=== PATIENT | male | born 1975 | race Caucasian/White ===

== ENCOUNTER 2019-11-18 21:29 | Inpatient (IN) | payer OTHER, SELFPAY ==
[~2019-11-18 21:29] MED LIST: Iopamidol 370 76% 100 ML VIAL ONE; Ketorolac Tromethamine 30 MG/ML VIAL ONE; Metoclopramide HCl 10 MG/2 ML VIAL ONE; Ondansetron PF 4 MG/2 ML Vial ONE; PROPOFOL 200 MG/20 ML VIAL ONE; Rocuronium Bromide 10 MG/ML (10ML VIAL) ONE; Succinylcholine Chloride 20 MG/ML 10 ml SYRINGE FS ONE
[2019-11-18] MEDS ORDERED: Fentanyl 100 MCG/2 ML VIAL ONE (21:34)
[2019-11-18] MEDS ORDERED: Ondansetron PF 4 MG/2 ML Vial ONE (21:34)
[2019-11-18] MEDS ORDERED: Adacel (T-DAP) 0.5 ML SYRINGE ONE (21:34)
[2019-11-18 21:43] LABS: #Eosinphils 0.3 thou/uL (0.0-0.7); #Lymphocytes 1.8 thou/uL (1.20-3.40); #Monocytes 0.7 thou/uL (0.11-0.59); #Neutrophils 4.8 thou/uL (1.40-6.50); %Basophils 0.4 % (0.0-1.0); %Eosinophils 3.9 % (0.0-10.0); %Lymphocytes 23.9 % (21.0-51.0); %Monocytes 8.7 % (0.0-10.0); Hemoglobin 14.7 g/dL (14.0-18.0); Mean Corpuscular HGB CONC 33.6 g/dL (32.0-36.0); Mean Corpuscular Hemoglobin 32.4 pg (27.0-31.0); Mean Corpuscular Volume 96.6 fL (78.0-98.0); Mean Platelet Volume 6.9 fL (7.4-10.4); Platelet Count 308 thou/uL (130-400); RBC Distribution Width 12.1 % (11.5-14.5); Red Blood Cell (RBC) Count 4.53 mill/uL (4.70-6.10); White Blood Cell (WBC) Count 7.6 thou/uL (4.8-10.8)
[2019-11-18 21:49] LABS: INR-International Normal Ratio 0.9; PTT 24.3 SEC (22.9-36.1); Prothrombin Time 12.6 SEC (12.0-14.7)
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
[2019-11-18 21:56] LABS: ALT (SGPT) 19 U/L (8-55); AST (SGOT) 20 U/L (5-34); Albumin 4.5 g/dL (3.5-5.0); Alkaline Phosphatase 62 U/L (40-110); Anion Gap 15 mmol/L (10-20); BUN (Urea Nitrogen) 19 mg/dL (8.9-20.6); Bilirubin, Total 0.4 mg/dL (0.2-1.2); Calc. Creatinine Clearance 0 mL/min (70-130); Calcium 10.1 mg/dL (7.8-10.44); Carbon Dioxide 29 mmol/L (22-29); Chloride 105 mmol/L (98-107); Estimated GFR-MDRD 71; Globulin 2.6 g/dL (2.4-3.5); Glucose 125 mg/dL (70-105); Potassium 4.6 mmol/L (3.5-5.1); Protein, Total 7.1 g/dL (6.0-8.3); Sodium 144 mmol/L (136-145)
[2019-11-18] MEDS ORDERED: Midazolam HCl 2 mg/2 ml Vial ONE (22:09)
[2019-11-18] MEDS ORDERED: Fentanyl 250 MCG/5 ML VIAL ONE (22:09)
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
[2019-11-18 22:22] LABS: Acetaminophen Less than 6.0 mcg/mL (10.0-30.0); Alcohol Less than 10 mg/dL (Less than 10); CK (CPK) 264 U/L (30-200); Magnesium 2.1 mg/dL (1.6-2.6); Phosphorus 3.9 mg/dL (2.3-4.7); Salicylate Less than 8.0 mg/dL (15.0-30.0)
[2019-11-18] MEDS ORDERED: Protamine Sulfate 250 MG/25 ML VIAL ONE (22:27)
[2019-11-18] MEDS ORDERED: Heparin 5,000 UNITS/ML VIAL ONE (22:27)
[2019-11-18] MEDS ORDERED: Sodium Chloride 0.9% 30 ML ONE (22:30)
[2019-11-18] MEDS ORDERED: SUGAMMADEX SODIUM 500 MG/5 ML VIAL ONE (22:48)
[2019-11-18] MEDS ORDERED: Famotidine/PF 20 mg/2ml Vial ONE (22:48)
[2019-11-18] MEDS ORDERED: Scopolamine 1.5 mg/72 hour Patch ONE (22:49)
[2019-11-18] MEDS ORDERED: HYDROmorphone 2 MG/ML VIAL ONE (22:50)
[2019-11-18] MEDS ORDERED: Morphine 4 MG/ML VIAL SLOW IVP PRN (22:56)
[2019-11-18] MEDS ORDERED: Ondansetron PF 4 MG/2 ML Vial IVP PRN (22:56)
[2019-11-18] MEDS ORDERED: hydrALAZINE 20 MG/ML VIAL SLOW IVP PRN (22:56)
[2019-11-18] MEDS ORDERED: Dextrose 5% in Water 1,000 ML IV PRN (22:56)
[2019-11-18] MEDS ORDERED: Dextrose 50% Abboject 50 ML SYRINGE SLOW IVP PRN (22:56)
[2019-11-18] MEDS ORDERED: traMADol HCl 50 MG TAB PO PRN ×2 (22:59)
[2019-11-18] MEDS ORDERED: Cyclobenzaprine 10 MG TAB PO PRN (22:59)
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
[2019-11-19] MEDS ORDERED: Ondansetron HCl/PF 4 MG/2 ML Vial IVP PRN (00:23)
[2019-11-19] MEDS ORDERED: Promethazine HCl 25 MG/ML VIAL SLOW IVP PRN (00:23)
[2019-11-19] MEDS ORDERED: Promethazine HCl 25 MG/ML VIAL IM PRN (00:23)
[2019-11-19] MEDS ORDERED: Meperidine HCl/PF 25 MG/ML VIAL SLOW IVP PRN (00:23)
[2019-11-19] MEDS: Sodium Chloride 0.9% 1,000 ML IV SCH ×2 (01:30→10:08)
[2019-11-19 01:32] VITALS: BMI 27.3
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
[2019-11-19 01:49] LABS: Lactic Acid 1.1 mmol/L (0.5-2.2)
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
[2019-11-19 04:17] LABS: Lactic Acid 0.8 mmol/L (0.5-2.2)
[2019-11-19 04:26] LABS: #Eosinphils 0.2 thou/uL (0.0-0.7); #Lymphocytes 1.6 thou/uL (1.20-3.40); #Monocytes 0.9 thou/uL (0.11-0.59); #Neutrophils 9.1 thou/uL (1.40-6.50); %Basophils 0.4 % (0.0-1.0); %Eosinophils 1.8 % (0.0-10.0); %Lymphocytes 13.4 % (21.0-51.0); %Monocytes 7.5 % (0.0-10.0); %Neutrophils 76.9 % (42.0-75.0); Hemoglobin 12.3 g/dL (14.0-18.0); Mean Corpuscular HGB CONC 33.2 g/dL (32.0-36.0); Mean Corpuscular Hemoglobin 31.8 pg (27.0-31.0); Mean Corpuscular Volume 95.8 fL (78.0-98.0); Mean Platelet Volume 7.2 fL (7.4-10.4); Platelet Count 240 thou/uL (130-400); RBC Distribution Width 12.1 % (11.5-14.5); Red Blood Cell (RBC) Count 3.86 mill/uL (4.70-6.10); White Blood Cell (WBC) Count 11.9 thou/uL (4.8-10.8)
[2019-11-19 04:31] LABS: Prothrombin Time 13.4 SEC (12.0-14.7)
[2019-11-19 04:40] LABS: Anion Gap 11 mmol/L (10-20); BUN (Urea Nitrogen) 17 mg/dL (8.9-20.6); Calc. Creatinine Clearance 128 mL/min (70-130); Calcium 8.4 mg/dL (7.8-10.44); Carbon Dioxide 24 mmol/L (22-29); Chloride 109 mmol/L (98-107); Estimated GFR-MDRD Greater than 90; Glucose 114 mg/dL (70-105); Phosphorus 3.9 mg/dL (2.3-4.7); Potassium 3.8 mmol/L (3.5-5.1); Sodium 140 mmol/L (136-145)
[2019-11-19] MEDS: CEFAZOLIN 2 GM in Premix Bag 1 BAG IVPB SCH ×2 (05:52→15:47)
[2019-11-19] MEDS: Acetaminophen 500 MG TAB PO SCH ×4 (05:52→19:35)
[2019-11-19 06:26] LABS: Amphetamine Detected (NotDetected); Barbiturates Screen Not Detected (NotDetected); Benzodiazepine Screen Not Detected (NotDetected); Cocaine Metabolite Screen Not Detected (NotDetected); Medtox Control Line Valid? VALID (VALID); Medtox Reader # READER 4; Methadone Not Detected (NotDetected); Methamphetamine Detected (NotDetected); Opiate Screen Not Detected (NotDetected); Oxycodone Screen Not Detected (NotDetected); Phencyclidine (PCP) Not Detected (NotDetected); THC/Cannabinoid Screen Detected (NotDetected); Tricyclic Screen Not Detected (NotDetected)
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
[2019-11-19] MEDS ORDERED: Senokot S 8.6-50 MG TAB PO SCH (09:00)
[2019-11-19] MEDS ORDERED: Polyethylene Glycol 3350 17 GM Packet PO SCH (09:00)
[2019-11-19] MEDS ORDERED: Aspirin 325 mg Enteric Coated Tablet PO SCH (09:00)
[2019-11-19] MEDS ORDERED: Famotidine/PF 20 mg/2ml Vial SLOW IVP SCH (09:00)
[2019-11-19] MEDS: traMADol HCl 50 MG TAB PO SCH ×2 (10:04→15:46)
[2019-11-19] MEDS: Gabapentin 300 MG CAP PO SCH ×2 (10:04→15:45)
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
[2019-11-19 19:59] VITALS: BP 114/77; TEMP 97.8
== END 2019-11-19 21:25 | disposition home or self-care (01) | DRG 909 ==
LOC: ERS 21:29 → EEVIPCON 21:29 → SDC/OP 22:14 → CCU 11-19 00:58 → SURG B 11-19 11:33
PROVIDERS: ADMIT Specialist; ATTEND Specialist
PROC: 06QM0ZZ Repair Right Femoral Vein, Open Approach (ICD-10-PCS; principal; 2019-11-18)
PROC: 041M0JL Bypass Right Popliteal Artery to Popliteal Artery with Synthetic Substitute, Open Approach (ICD-10-PCS; 2019-11-18)
DX: S00-T88 Injury, poisoning and certain other consequences of external causes (principal); F12.10 Cannabis abuse, uncomplicated; F17.210 Nicotine dependence, cigarettes, uncomplicated; W34.00XA Accidental discharge from unspecified firearms or gun, initial encounter
CPT/HCPCS: 36415; 71045; 72170; 80048; 80053; 80306; 80307; 82550; 83605; 83735; 84100; 85025; 85610; 85730; 86850; 86900; 86901; 90471; 90715; 96365; 96375; J0690; J1170; J1644; J1885; J2250; J2405; J2704; J2720; J2765; J3010; Q9967; S0028

== ENCOUNTER 2019-11-24 07:44 | Emergency (ER) | payer SELFPAY ==
[2019-11-24 08:34] LABS: #Eosinphils 0.3 thou/uL (0.0-0.7); #Monocytes 0.7 thou/uL (0.11-0.59); #Neutrophils 6.8 thou/uL (1.40-6.50); %Basophils 0.6 % (0.0-1.0); %Eosinophils 2.9 % (0.0-10.0); %Lymphocytes 11.3 % (21.0-51.0); %Monocytes 8.4 % (0.0-10.0); %Neutrophils 76.9 % (42.0-75.0); Hemoglobin 12.1 g/dL (14.0-18.0); Mean Corpuscular HGB CONC 34.1 g/dL (32.0-36.0); Mean Platelet Volume 6.9 fL (7.4-10.4); Platelet Count 306 thou/uL (130-400); RBC Distribution Width 11.9 % (11.5-14.5); Red Blood Cell (RBC) Count 3.67 mill/uL (4.70-6.10); White Blood Cell (WBC) Count 8.9 thou/uL (4.8-10.8)
[2019-11-24 08:47] LABS: ALT (SGPT) 17 U/L (8-55); AST (SGOT) 23 U/L (5-34); Albumin 4.2 g/dL (3.5-5.0); Alkaline Phosphatase 68 U/L (40-110); Anion Gap 12 mmol/L (10-20); BUN (Urea Nitrogen) 17 mg/dL (8.9-20.6); Bilirubin, Total 0.4 mg/dL (0.2-1.2); CK (CPK) 237 U/L (30-200); Calc. Creatinine Clearance 0 mL/min (70-130); Calcium 9.7 mg/dL (7.8-10.44); Carbon Dioxide 29 mmol/L (22-29); Chloride 100 mmol/L (98-107); Estimated GFR-MDRD Greater than 90; Globulin 2.4 g/dL (2.4-3.5); Glucose 118 mg/dL (70-105); Potassium 4.3 mmol/L (3.5-5.1); Protein, Total 6.6 g/dL (6.0-8.3); Sodium 137 mmol/L (136-145)
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
== END 2019-11-24 09:30 | disposition home or self-care (01) ==
LOC: ERS 07:44
DX: I82.431 Acute embolism and thrombosis of right popliteal vein (principal); I82.411 Acute embolism and thrombosis of right femoral vein; I82.441 Acute embolism and thrombosis of right tibial vein; F17.210 Nicotine dependence, cigarettes, uncomplicated
CPT/HCPCS: 80053; 82550; 85025

== ENCOUNTER 2021-11-08 17:18 | Inpatient (IN) | payer SELFPAY ==
[2021-11-08] MEDS ORDERED: Morphine 4 MG/ML VIAL ONE (17:44)
[2021-11-08] MEDS ORDERED: Ketorolac Tromethamine 30 MG/ML VIAL ONE (18:30)
[2021-11-08] MEDS ORDERED: Fentanyl 100 MCG/2 ML VIAL ONE (18:34)
[2021-11-08] MEDS ORDERED: hydrALAZINE 20 MG/ML VIAL SLOW IVP PRN (19:24)
[2021-11-08] MEDS ORDERED: Ondansetron PF 4 MG/2 ML Vial IVP PRN (19:24)
[2021-11-08] MEDS ORDERED: Promethazine HCl 25 MG/ML VIAL IM PRN (19:24)
[2021-11-08] MEDS ORDERED: traMADol HCl 50 MG TAB PO PRN (19:30)
[2021-11-08] MEDS ORDERED: Cyclobenzaprine 10 MG TAB PO PRN (19:30)
[2021-11-08 19:37] LABS: #Eosinphils 0.3 thou/uL (0.0-0.7); #Lymphocytes 1.3 thou/uL (1.20-3.40); #Monocytes 0.6 thou/uL (0.11-0.59); #Neutrophils 4.6 thou/uL (1.40-6.50); %Basophils 0.3 % (0.0-1.0); %Eosinophils 4.2 % (0.0-10.0); %Lymphocytes 19.4 % (21.0-51.0); %Monocytes 8.1 % (0.0-10.0); Hemoglobin 14.3 g/dL (14.0-18.0); Mean Corpuscular HGB CONC 32.9 g/dL (32.0-36.0); Mean Corpuscular Volume 97.4 fL (78.0-98.0); Mean Platelet Volume 6.7 fL (7.4-10.4); Platelet Count 278 thou/uL (130-400); RBC Distribution Width 12.1 % (11.5-14.5); Red Blood Cell (RBC) Count 4.48 mill/uL (4.70-6.10); White Blood Cell (WBC) Count 6.8 thou/uL (4.8-10.8)
[2021-11-08 19:44] LABS: Prothrombin Time 12.8 sec (12.0-14.7)
[2021-11-08 19:45] LABS: PTT 31.8 sec (22.9-36.1)
[2021-11-08 19:53] LABS: ALT (SGPT) 24 U/L (8-55); AST (SGOT) 26 U/L (5-34); Albumin 4.2 g/dL (3.5-5.0); Alkaline Phosphatase 69 U/L (40-110); Anion Gap 13 mmol/L (10-20); BUN (Urea Nitrogen) 19 mg/dL (8.9-20.6); Bilirubin, Total 0.4 mg/dL (0.2-1.2); Calc. Creatinine Clearance 0 mL/min (70-130); Calcium 9.3 mg/dL (7.8-10.44); Carbon Dioxide 29 mmol/L (22-29); Chloride 100 mmol/L (98-107); Globulin 2.7 g/dL (2.4-3.5); Glucose 85 mg/dL (70-105); Potassium 3.9 mmol/L (3.5-5.1); Protein, Total 6.9 g/dL (6.0-8.3); Sodium 138 mmol/L (136-145)
[2021-11-08] MEDS ORDERED: Sodium Chloride 0.9% 1,000 ML IV SCH (20:30)
[2021-11-08] MEDS: Sodium Chloride 0.9% 1,000 ML IV SCH (22:00)
[2021-11-08] MEDS: Famotidine/PF 20 mg/2ml Vial SLOW IVP SCH (22:00)
[2021-11-08] MEDS ORDERED: Ibuprofen 600 MG TAB PO SCH (22:00)
[2021-11-08] MEDS: Senokot S 8.6-50 MG TAB PO SCH (22:00)
[2021-11-08] MEDS: Gabapentin 100 MG CAP PO SCH (22:00)
[2021-11-09] MEDS: traMADol HCl 50 MG TAB PO SCH ×4 (00:15→18:30)
[2021-11-09] MEDS: Acetaminophen 500 MG TAB PO SCH ×4 (00:15→18:34)
[2021-11-09 03:09] VITALS: BMI 28.8
[2021-11-09] MEDS: Sodium Chloride 0.9% 1,000 ML IV SCH (05:00)
[2021-11-09 06:03] LABS: #Eosinphils 0.3 thou/uL (0.0-0.7); #Lymphocytes 1.6 thou/uL (1.20-3.40); #Monocytes 0.5 thou/uL (0.11-0.59); #Neutrophils 2.5 thou/uL (1.40-6.50); %Basophils 0.8 % (0.0-1.0); %Eosinophils 6.2 % (0.0-10.0); %Lymphocytes 32.8 % (21.0-51.0); %Neutrophils 50.3 % (42.0-75.0); Hemoglobin 13.5 g/dL (14.0-18.0); Mean Corpuscular HGB CONC 34.1 g/dL (32.0-36.0); Mean Corpuscular Hemoglobin 33.6 pg (27.0-31.0); Mean Corpuscular Volume 98.3 fL (78.0-98.0); Mean Platelet Volume 6.3 fL (7.4-10.4); Platelet Count 231 thou/uL (130-400); RBC Distribution Width 12.1 % (11.5-14.5); Red Blood Cell (RBC) Count 4.03 mill/uL (4.70-6.10); White Blood Cell (WBC) Count 4.9 thou/uL (4.8-10.8)
[2021-11-09 06:27] LABS: Anion Gap 8 mmol/L (10-20); BUN (Urea Nitrogen) 15 mg/dL (8.9-20.6); Calc. Creatinine Clearance 119 mL/min (70-130); Calcium 8.1 mg/dL (7.8-10.44); Carbon Dioxide 26 mmol/L (22-29); Chloride 106 mmol/L (98-107); Glucose 87 mg/dL (70-105); Potassium 3.7 mmol/L (3.5-5.1); Sodium 136 mmol/L (136-145)
[2021-11-09 06:29] LABS: CK (CPK) 258 U/L (30-200); Phosphorus 2.8 mg/dL (2.3-4.7)
[2021-11-09] MEDS ORDERED: PHOS-NAK 1 PKT PACK PO SCH (07:15)
[2021-11-09] MEDS ORDERED: Polyethylene Glycol 3350 17 GM Packet PO SCH (09:00)
[2021-11-09] MEDS: Ibuprofen 200 MG TAB PO SCH ×2 (09:11→17:03)
[2021-11-09] MEDS: Gabapentin 100 MG CAP PO SCH ×2 (09:14→15:21)
[2021-11-09] MEDS: Senokot S 8.6-50 MG TAB PO SCH (09:14)
[2021-11-09] MEDS: Famotidine/PF 20 mg/2ml Vial SLOW IVP SCH (09:14)
[2021-11-09 12:05] VITALS: TEMP 97.4
[2021-11-09] MEDS ORDERED: Fentanyl 100 MCG/2 ML VIAL ONE ×2 (12:13→13:04)
[2021-11-09 12:57] LABS: SARS-CoV-2 NAA Rapid Test Not Detected (NotDetected)
[2021-11-09] MEDS ORDERED: ceFAZolin (BATCH) 2 GM/100 ML BAG ONE (12:59)
[2021-11-09] MEDS ORDERED: Dexamethasone 20 MG/5 ML VIAL ONE (13:07)
[2021-11-09] MEDS ORDERED: Lidocaine 1% PF 5 ML VIAL ONE (13:07)
[2021-11-09] MEDS ORDERED: PROPOFOL 200 MG/20 ML VIAL ONE (13:07)
[2021-11-09] MEDS ORDERED: Ondansetron PF 4 MG/2 ML Vial ONE (13:07)
[2021-11-09] MEDS ORDERED: Neomycin-Polymyxin 1 ML AMP ONE (13:34)
[2021-11-09] MEDS ORDERED: Bupivacaine 0.25% 10 ML VIAL ONE (14:51)
[2021-11-09 15:44] VITALS: BP 124/77
[2021-11-09] MEDS ORDERED: CEFAZOLIN 2 GM, Admixture Fee 1 EACH in Sodium Chloride 0.9% 100 ML IVPB SCH ×2 (19:00→23:59)
== END 2021-11-09 18:47 | disposition left against medical advice (07) | DRG 906 ==
LOC: ERS 17:18 → SJJU 20:23 → OBSVTOIN 20:23
PROVIDERS: ADMIT Specialist; ATTEND Specialist
PROC: 0KNC0ZZ Release Right Hand Muscle, Open Approach (ICD-10-PCS; principal; 2021-11-08)
PROC: 0KNC0ZZ Release Right Hand Muscle, Open Approach (ICD-10-PCS; 2021-11-08)
PROC: 0KNC0ZZ Release Right Hand Muscle, Open Approach (ICD-10-PCS; 2021-11-08)
PROC: 01N50ZZ Release Median Nerve, Open Approach (ICD-10-PCS; 2021-11-08)
DX: T79.A11A Traumatic compartment syndrome of right upper extremity, initial encounter (principal); N17.9 Acute kidney failure, unspecified; S67.21XA Crushing injury of right hand, initial encounter; F12.10 Cannabis abuse, uncomplicated; F17.210 Nicotine dependence, cigarettes, uncomplicated; W23.0XXA Caught, crushed, jammed, or pinched between moving objects, initial encounter; Z20.822 Contact with and (suspected) exposure to COVID-19; Z98.890 Other specified postprocedural states; Z72.89 Other problems related to lifestyle
CPT/HCPCS: 36415; 80048; 80053; 80307; 82550; 83735; 84100; 85025; 85610; 85730; 87070; 87205; 96374; 96375; J0690; J1100; J1885; J2270; J2405; J2704; J3010; J7050; S0020; S0028; U0002

== ENCOUNTER 2021-11-11 00:12 | Inpatient (IN) | payer SELFPAY ==
[2021-11-11] MEDS ORDERED: Morphine 4 MG/ML VIAL ONE (00:47)
[2021-11-11 01:03] LABS: #Eosinphils 0.2 thou/uL (0.0-0.7); #Lymphocytes 1.8 thou/uL (1.20-3.40); #Monocytes 0.7 thou/uL (0.11-0.59); #Neutrophils 4.9 thou/uL (1.40-6.50); %Basophils 0.4 % (0.0-1.0); %Eosinophils 3.2 % (0.0-10.0); %Lymphocytes 23.7 % (21.0-51.0); %Monocytes 8.5 % (0.0-10.0); %Neutrophils 64.3 % (42.0-75.0); Hemoglobin 13.5 g/dL (14.0-18.0); Mean Corpuscular HGB CONC 33.1 g/dL (32.0-36.0); Mean Corpuscular Hemoglobin 32.6 pg (27.0-31.0); Mean Corpuscular Volume 98.4 fL (78.0-98.0); Mean Platelet Volume 6.3 fL (7.4-10.4); Platelet Count 272 thou/uL (130-400); RBC Distribution Width 12.2 % (11.5-14.5); Red Blood Cell (RBC) Count 4.15 mill/uL (4.70-6.10); White Blood Cell (WBC) Count 7.6 thou/uL (4.8-10.8)
[2021-11-11] MEDS ORDERED: Ketorolac Tromethamine 30 MG/ML VIAL ONE (01:04)
[2021-11-11 01:25] LABS: ALT (SGPT) 24 U/L (8-55); AST (SGOT) 26 U/L (5-34); Albumin 4.1 g/dL (3.5-5.0); Alkaline Phosphatase 65 U/L (40-110); Anion Gap 8 mmol/L (10-20); BUN (Urea Nitrogen) 9 mg/dL (8.9-20.6); Bilirubin, Total 0.5 mg/dL (0.2-1.2); Calc. Creatinine Clearance 0 mL/min (70-130); Calcium 8.9 mg/dL (7.8-10.44); Carbon Dioxide 31 mmol/L (22-29); Chloride 104 mmol/L (98-107); Globulin 2.7 g/dL (2.4-3.5); Glucose 84 mg/dL (70-105); Potassium 3.9 mmol/L (3.5-5.1); Protein, Total 6.8 g/dL (6.0-8.3); Sodium 139 mmol/L (136-145)
[2021-11-11] MEDS ORDERED: Dextrose 50% Abboject 50 ML SYRINGE SLOW IVP PRN (01:29)
[2021-11-11] MEDS ORDERED: Dextrose 5% in Water 1,000 ML IV PRN (01:29)
[2021-11-11] MEDS ORDERED: hydrALAZINE 20 MG/ML VIAL SLOW IVP PRN (01:29)
[2021-11-11] MEDS ORDERED: Morphine 4 MG/ML VIAL SLOW IVP PRN ×2 (01:29→01:53)
[2021-11-11] MEDS ORDERED: Ondansetron PF 4 MG/2 ML Vial IVP PRN (01:29)
[2021-11-11] MEDS ORDERED: Sodium Chloride 0.9% 1,000 ML IV SCH (01:30)
[2021-11-11] MEDS ORDERED: Cyclobenzaprine 10 MG TAB PO PRN (01:32)
[2021-11-11] MEDS ORDERED: ceFAZolin 2 GM/Dextrose 50 ML 2 GM in Premix Bag 1 BAG IVPB SCH (02:00)
[2021-11-11] MEDS ORDERED: Gabapentin 100 MG CAP PO SCH (02:00)
[2021-11-11 02:31] VITALS: BMI 27.6
[2021-11-11] MEDS: Acetaminophen 500 MG TAB PO SCH ×4 (02:48→21:10)
[2021-11-11] MEDS: traMADol HCl 50 MG TAB PO SCH ×4 (02:48→21:10)
[2021-11-11] MEDS: CEFAZOLIN 2 GM in Sodium Chloride 0.9% 100 ML IVPB SCH ×4 (02:50→17:18)
[2021-11-11] MEDS: Gabapentin 100 MG CAP PO SCH ×3 (05:33→21:11)
[2021-11-11] MEDS: Ketorolac Tromethamine 30 MG/ML VIAL IVP SCH ×3 (05:34→17:18)
[2021-11-11] MEDS: Saccharomyces boulardii 250 MG CAP PO SCH (07:54)
[2021-11-11] MEDS: Senokot S 8.6-50 MG TAB PO SCH ×2 (07:54→21:10)
[2021-11-11] MEDS: Polyethylene Glycol 3350 17 GM Packet PO SCH (07:54)
[2021-11-11] MEDS: Famotidine 20 MG TAB PO SCH ×2 (07:54→21:10)
[2021-11-12] MEDS: Ketorolac Tromethamine 30 MG/ML VIAL IVP SCH ×4 (00:36→17:24)
[2021-11-12] MEDS: CEFAZOLIN 2 GM in Sodium Chloride 0.9% 100 ML IVPB SCH ×3 (02:17→10:59)
[2021-11-12] MEDS: Acetaminophen 500 MG TAB PO SCH ×4 (02:18→20:10)
[2021-11-12] MEDS: traMADol HCl 50 MG TAB PO SCH ×4 (02:18→20:10)
[2021-11-12 05:45] LABS: #Eosinphils 0.4 thou/uL (0.0-0.7); #Monocytes 0.5 thou/uL (0.11-0.59); %Basophils 0.7 % (0.0-1.0); %Eosinophils 7.2 % (0.0-10.0); %Monocytes 8.7 % (0.0-10.0); %Neutrophils 50.5 % (42.0-75.0); Hemoglobin 13.5 g/dL (14.0-18.0); Mean Corpuscular HGB CONC 32.5 g/dL (32.0-36.0); Mean Corpuscular Volume 98.6 fL (78.0-98.0); Mean Platelet Volume 6.4 fL (7.4-10.4); Platelet Count 286 thou/uL (130-400); Red Blood Cell (RBC) Count 4.21 mill/uL (4.70-6.10); White Blood Cell (WBC) Count 5.9 thou/uL (4.8-10.8)
[2021-11-12 05:54] LABS: Anion Gap 7 mmol/L (10-20); BUN (Urea Nitrogen) 11 mg/dL (8.9-20.6); CK (CPK) 101 U/L (30-200); Calc. Creatinine Clearance 109 mL/min (70-130); Calcium 8.3 mg/dL (7.8-10.44); Carbon Dioxide 28 mmol/L (22-29); Chloride 106 mmol/L (98-107); Glucose 85 mg/dL (70-105); Magnesium 1.9 mg/dL (1.6-2.6); Phosphorus 3.6 mg/dL (2.3-4.7); Sodium 137 mmol/L (136-145)
[2021-11-12] MEDS: Gabapentin 100 MG CAP PO SCH ×3 (06:19→21:30)
[2021-11-12] MEDS ORDERED: Morphine 4 MG/ML VIAL SLOW IVP PRN (07:33)
[2021-11-12] MEDS ORDERED: PHOS-NAK 1 PKT PACK PO SCH (07:45)
[2021-11-12] MEDS: Polyethylene Glycol 3350 17 GM Packet PO SCH (08:05)
[2021-11-12] MEDS: Famotidine 20 MG TAB PO SCH ×2 (08:05→21:30)
[2021-11-12] MEDS: Senokot S 8.6-50 MG TAB PO SCH ×2 (08:06→21:30)
[2021-11-12] MEDS: Saccharomyces boulardii 250 MG CAP PO SCH (08:06)
[2021-11-12 08:44] LABS: SARS-CoV-2 NAA Rapid Test Not Detected (NotDetected)
[2021-11-12] MEDS ORDERED: Piperacillin/Tazobactam 3.375 GM in Sodium Chloride 0.9% 100 ML IVPB SCH (12:15)
[2021-11-12] MEDS: Piperacillin/Tazobactam 3.375 GM in Sodium Chloride 0.9% 100 ML IVPB SCH ×2 (15:49→16:30)
[2021-11-13] MEDS: Piperacillin/Tazobactam 3.375 GM in Sodium Chloride 0.9% 100 ML IVPB SCH ×3 (00:35→10:58)
[2021-11-13] MEDS: Ketorolac Tromethamine 30 MG/ML VIAL IVP SCH ×2 (01:03→05:55)
[2021-11-13] MEDS: Acetaminophen 500 MG TAB PO SCH ×3 (02:05→16:19)
[2021-11-13] MEDS: traMADol HCl 50 MG TAB PO SCH ×3 (02:05→16:20)
[2021-11-13] MEDS: Gabapentin 100 MG CAP PO SCH ×2 (05:54→16:19)
[2021-11-13 06:07] LABS: #Eosinphils 0.4 thou/uL (0.0-0.7); #Lymphocytes 1.2 thou/uL (1.20-3.40); #Monocytes 0.4 thou/uL (0.11-0.59); #Neutrophils 3.3 thou/uL (1.40-6.50); %Basophils 0.6 % (0.0-1.0); %Eosinophils 7.9 % (0.0-10.0); %Lymphocytes 21.8 % (21.0-51.0); %Monocytes 6.9 % (0.0-10.0); %Neutrophils 62.9 % (42.0-75.0); Hemoglobin 14.8 g/dL (14.0-18.0); Mean Corpuscular HGB CONC 32.9 g/dL (32.0-36.0); Mean Corpuscular Hemoglobin 32.2 pg (27.0-31.0); Mean Corpuscular Volume 97.9 fL (78.0-98.0); Mean Platelet Volume 6.9 fL (7.4-10.4); Platelet Count 279 thou/uL (130-400); Red Blood Cell (RBC) Count 4.59 mill/uL (4.70-6.10); White Blood Cell (WBC) Count 5.3 thou/uL (4.8-10.8)
[2021-11-13 06:26] LABS: Anion Gap 13 mmol/L (10-20); BUN (Urea Nitrogen) 11 mg/dL (8.9-20.6); Calc. Creatinine Clearance 113 mL/min (70-130); Calcium 8.8 mg/dL (7.8-10.44); Carbon Dioxide 24 mmol/L (22-29); Chloride 103 mmol/L (98-107); Glucose 116 mg/dL (70-105); Magnesium 1.9 mg/dL (1.6-2.6); Phosphorus 3.1 mg/dL (2.3-4.7); Potassium 3.8 mmol/L (3.5-5.1); Sodium 136 mmol/L (136-145)
[2021-11-13] MEDS ORDERED: PHOS-NAK 1 PKT PACK PO SCH (09:00)
[2021-11-13] MEDS ORDERED: Ibuprofen 200 MG TAB PO PRN (09:01)
[2021-11-13] MEDS: Famotidine 20 MG TAB PO SCH (09:27)
[2021-11-13] MEDS: Saccharomyces boulardii 250 MG CAP PO SCH (09:27)
[2021-11-13] MEDS: Senokot S 8.6-50 MG TAB PO SCH (09:27)
[2021-11-13] MEDS: Polyethylene Glycol 3350 17 GM Packet PO SCH (09:27)
[2021-11-13 16:30] VITALS: BP 128/85; TEMP 97.8
== END 2021-11-13 19:45 | disposition left against medical advice (07) | DRG 923 ==
LOC: ERS 00:12 → SURG A 01:29 → OBSVTOIN 16:43
PROVIDERS: ADMIT Specialist; ATTEND Specialist
DX: T79.A11A Traumatic compartment syndrome of right upper extremity, initial encounter (principal); R78.81 Bacteremia; S50.11XA Contusion of right forearm, initial encounter; Z20.822 Contact with and (suspected) exposure to COVID-19; F17.210 Nicotine dependence, cigarettes, uncomplicated; S62.306A Unspecified fracture of fifth metacarpal bone, right hand, initial encounter for closed fracture; X58.XXXA Exposure to other specified factors, initial encounter; B96.89 Other specified bacterial agents as the cause of diseases classified elsewhere; Z53.29 Procedure and treatment not carried out because of patient's decision for other reasons
CPT/HCPCS: 36415; 80048; 80053; 82550; 83735; 84100; 85025; 87040; 87149; 96365; 96375; 96376; G0378; J0690; J1885; J2270; J2405; J2543; J3490; J7050; U0002

== ENCOUNTER 2024-01-28 15:45 | Emergency (ER) | payer OTHER ==
[2024-01-28] MEDS ORDERED: levETIRAcetam 500 MG (5 mL) VIAL ONE ×3 (17:04→20:36)
[2024-01-28] MEDS ORDERED: Acetaminophen 500 MG TAB ONE (17:04)
[2024-01-28] MEDS ORDERED: LORazepam 2 MG/ML SYR.(CARPUJECT) ONE (17:17)
[2024-01-28 19:12] LABS: #Basophils Less than 0.03 10x3/uL (0.0-0.2); #Eosinphils Less than 0.03 10x3/uL (0.0-0.7); %Basophils 0.1 % (0.0-1.0); %Lymphocytes 11.1 % (21.0-51.0); %Monocytes 5.2 % (0.0-10.0); %Neutrophils 82.7 % (42.0-75.0); Hematocrit 38.3 % (42.0-52.0); Hemoglobin 12.8 g/dL (14.0-18.0); Mean Corpuscular HGB CONC 33.4 g/dL (32.0-36.0); Mean Corpuscular Hemoglobin 30.5 pg (27.0-31.0); Mean Corpuscular Volume 91.2 fL (78.0-98.0); Platelet Count 430 10x3/uL (130-400); RBC Distribution Width 13.2 % (11.5-14.5)
[2024-01-28 19:29] LABS: ALT (SGPT) 44 U/L (8-55); AST (SGOT) 25 U/L (5-34); Albumin 3.3 g/dL (3.5-5.0); Alkaline Phosphatase 50 U/L (40-110); Anion Gap 14 mmol/L (10-20); BUN (Urea Nitrogen) 10 mg/dL (8.9-20.6); Bilirubin, Total 0.3 mg/dL (0.2-1.2); Calc. Creatinine Clearance 0 mL/min (70-130); Calcium 9.4 mg/dL (7.8-10.44); Carbon Dioxide 26 mmol/L (22-29); Chloride 106 mmol/L (98-107); Estimated GFR 112; Globulin 3.2 g/dL (2.4-3.5); Glucose 111 mg/dL (70-105); Potassium 4.5 mmol/L (3.5-5.1); Protein, Total 6.5 g/dL (6.0-8.3); Sodium 141 mmol/L (136-145)
== END 2024-01-28 21:39 | disposition short-term general hospital (02) ==
LOC: ERS 15:45 → EEVIPCON 15:45 → ERS 21:39
DX: G40.901 Epilepsy, unspecified, not intractable, with status epilepticus (principal); F17.210 Nicotine dependence, cigarettes, uncomplicated
CPT/HCPCS: 36415; 70450; 80053; 84146; 85025; 93005; 96374; 96375; 96376; J1953; J2060

== ENCOUNTER 2024-02-01 20:53 | Emergency (ER) | payer OTHER ==
[2024-02-01] MEDS ORDERED: LORazepam 2 MG/ML SYR.(CARPUJECT) ONE (22:28)
[2024-02-01] MEDS ORDERED: levETIRAcetam 500 MG (5 mL) VIAL ONE (22:32)
[2024-02-01 22:56] LABS: #Basophils 0.04 10x3/uL (0.0-0.2); %Basophils 0.5 % (0.0-1.0); %Eosinophils 1.5 % (0.0-10.0); %Lymphocytes 26.9 % (21.0-51.0); %Monocytes 7.4 % (0.0-10.0); %Neutrophils 63.4 % (42.0-75.0); Hematocrit 38.8 % (42.0-52.0); Mean Corpuscular HGB CONC 33.5 g/dL (32.0-36.0); Mean Corpuscular Hemoglobin 31.1 pg (27.0-31.0); Mean Corpuscular Volume 92.8 fL (78.0-98.0); Mean Platelet Volume 9.2 fL (7.4-10.4); Platelet Count 420 10x3/uL (130-400); RBC Distribution Width 13.3 % (11.5-14.5); Red Blood Cell (RBC) Count 4.18 mill/uL (4.70-6.10)
[2024-02-01] MEDS ORDERED: Acetaminophen 500 MG TAB ONE (23:09)
[2024-02-01 23:13] LABS: Troponin I Less than 0.010 ng/mL (< 0.028)
[2024-02-01 23:14] LABS: ALT (SGPT) 32 U/L (8-55); AST (SGOT) 16 U/L (5-34); Albumin 3.5 g/dL (3.5-5.0); Alkaline Phosphatase 60 U/L (40-110); Anion Gap 18 mmol/L (10-20); BUN (Urea Nitrogen) 11 mg/dL (8.9-20.6); Bilirubin, Total 0.2 mg/dL (0.2-1.2); Calc. Creatinine Clearance 0 mL/min (70-130); Calcium 9.4 mg/dL (7.8-10.44); Carbon Dioxide 21 mmol/L (22-29); Chloride 104 mmol/L (98-107); Estimated GFR 111; Globulin 3.1 g/dL (2.4-3.5); Glucose 114 mg/dL (70-105); Potassium 3.6 mmol/L (3.5-5.1); Protein, Total 6.6 g/dL (6.0-8.3); Sodium 139 mmol/L (136-145)
== END 2024-02-02 01:19 ==
LOC: ERS 20:53 → EEVIPCON 20:53 → ERS 02-02 01:19
DX: R56.9 Unspecified convulsions (principal); F17.210 Nicotine dependence, cigarettes, uncomplicated
CPT/HCPCS: 36415; 36416; 70450; 80053; 80177; 83735; 84484; 85025; 93005; 96374; 96375; J1953; J2060

== ENCOUNTER 2024-02-03 02:33 | Emergency (ER) | payer OTHER ==
[2024-02-03] MEDS ORDERED: levETIRAcetam 500 MG (5 mL) VIAL ONE (03:15)
[2024-02-03] MEDS ORDERED: Lorazepam 2 MG/ML VIAL ONE (03:48)
[2024-02-03 04:33] LABS: #Basophils 0.03 10x3/uL (0.0-0.2); %Basophils 0.6 % (0.0-1.0); %Eosinophils 2.6 % (0.0-10.0); %Lymphocytes 29.4 % (21.0-51.0); %Monocytes 6.6 % (0.0-10.0); %Neutrophils 60.4 % (42.0-75.0); Hematocrit 38.9 % (42.0-52.0); Hemoglobin 13.1 g/dL (14.0-18.0); Mean Corpuscular HGB CONC 33.7 g/dL (32.0-36.0); Mean Corpuscular Hemoglobin 31.3 pg (27.0-31.0); Mean Corpuscular Volume 93.1 fL (78.0-98.0); Mean Platelet Volume 9.2 fL (7.4-10.4); Platelet Count 391 10x3/uL (130-400); RBC Distribution Width 13.5 % (11.5-14.5); Red Blood Cell (RBC) Count 4.18 mill/uL (4.70-6.10)
[2024-02-03 05:10] LABS: ALT (SGPT) 37 U/L (8-55); AST (SGOT) 22 U/L (5-34); Albumin 3.4 g/dL (3.5-5.0); Alkaline Phosphatase 59 U/L (40-110); Anion Gap 15 mmol/L (10-20); BUN (Urea Nitrogen) 8 mg/dL (8.9-20.6); Bilirubin, Total 0.3 mg/dL (0.2-1.2); Calc. Creatinine Clearance 0 mL/min (70-130); Carbon Dioxide 25 mmol/L (22-29); Chloride 106 mmol/L (98-107); Estimated GFR 115; Globulin 3.1 g/dL (2.4-3.5); Glucose 92 mg/dL (70-105); Magnesium 1.9 mg/dL (1.6-2.6); Protein, Total 6.5 g/dL (6.0-8.3); Sodium 142 mmol/L (136-145)
== END 2024-02-03 07:18 ==
LOC: ERS 02:33
DX: R56.9 Unspecified convulsions (principal); Z55.6 Problems related to health literacy
CPT/HCPCS: 36415; 70450; 72125; 80053; 83605; 83735; 85025; 96365; 96375; J1953; J2060